=== PATIENT | female | born 1980 ===

== ENCOUNTER 2018-03-15 06:33 | Inpatient (IN) | payer OTHER ==
[~2018-03-15] VITALS: Ht 167.6 cm; Wt 52.2 kg
[2018-03-15] VITALS (15 sets, daily range): BP systolic 94–116; BP diastolic 53–78
[~2018-03-15 06:33] MED LIST: NKM
[2018-03-15] MEDS ORDERED: ceFAZolin sod 2 GM in D5W 110 ML IVPB ONE (07:00)
--- NOTE | 2018-03-15 07:22 | Pre-Procedure Note/Attestation ---
Pre-Procedure Note/Attestation Complete Prior to Procedure Planned Procedure: not applicable Procedure Narrative: anterior Cervical discectomy and fusion of C34 and Artificial disc replacement of C45 Indications for Procedure Pre-Operative Diagnosis: Herniation of C34 and 45 Attestation I attest that I discussed the nature of the procedure; its benefits; risks and complications; and alternatives (and the risks and benefits of such alternatives ), prior to the procedure, with the patient (or the patient's legal business center representative). I attest that, if there was a reasonable possibility of needing a blood transfusion, the patient (or the patient's legal business center representative) was given the [facility] standardized written summary, pursuant to the [place] Blood Safety Act ([place] Health and Safety Code # 1645, as amended). I attest that I re-evaluated the patient just prior to the surgery and that there has been no change in the patient's H&P, except as documented below: Ryne Jonas MD Mar 15, 2018 07:22
--- NOTE | 2018-03-15 07:23 | Brief Operative Note ---
Immediate Post Operative Note Operative Note Chief Complaint: neck pain and radiculopathy Pre-op Diagnosis: Herniation of C34 and 45 Procedure: anterior Cervical discectomy and fusion of C34 and Artificial disc replacement of C45 Post-op Diagnosis: same as pre-op Findings: consistent w/pre-op dx studies Surgeon: Pritesh Screen Door Maker: Mike Anesthesiologist: Anesthesia: general Specimen: none Complications: none Condition: stable Fluids: ivf Estimated Blood Loss: minimal Implant(s) used?: Yes - Prodisc C sz 5, nuvasive C Ryne Connell MD Mar 15, 2018 07:23
[2018-03-15] MEDS ORDERED: Metoclopramide 10mg/2ml Inj IVP PRN (07:30)
[2018-03-15] MEDS ORDERED: Vancomycin 1gm inj IVPB ONE (10:13)
[2018-03-15] MEDS ORDERED: Thrombin 5000 units TOPIC ONE (10:14)
[2018-03-15] MEDS ORDERED: Bacitracin 50000 Units Vial ONE (10:14)
[2018-03-15] MEDS ORDERED: Propofol 1,000mg/ 100ml btl IV ONE (10:30)
[2018-03-15] MEDS ORDERED: Neostigmine 1mg/ml 10ml Inj ONE (10:30)
[2018-03-15] MEDS ORDERED: NS Irrig 1000ml ONE (10:30)
[2018-03-15] MEDS ORDERED: Sterile Water Irrig 1000ml IRRIG ONE (10:30)
[2018-03-15] MEDS ORDERED: LR 1000ml ONE (10:30)
[2018-03-15] MEDS ORDERED: Ketamine 500mg Inj ONE (10:30)
[2018-03-15] MEDS ORDERED: Zemuron 50mg/5ml Inj IV ONE (10:30)
[2018-03-15] MEDS ORDERED: Succinylcholine 20mg/ml 10ml vial ONE (10:49)
[2018-03-15] MEDS ORDERED: Lidocaine 1% MPF 10mg/ml 5ml ONE (10:52)
[2018-03-15] MEDS ORDERED: Propofol 200mg/20ml IV ONE ×2 (10:52→13:25)
[2018-03-15] MEDS ORDERED: fentaNYL 100 mcg/2 mL IV ONE (11:25)
--- NOTE | 2018-03-15 12:14 | Anethesia Preoperative Eval ---
Anesthesia Pre-op PMH/ROS General Date of Evaluation: Mar 15, 2018 Time of Evaluation: 10:45 Anesthesiologist: ASA Score: ASA 2 Mallampati Score Class I : Soft palate, uvula, fauces, pillars visible Class II: Soft palate, uvula, fauces visible Class III: Soft palate, base of uvula visible Class IV: Only hard plate visible Mallampati Classification: Class I Surgeon: luba Diagnosis: cervical herniated nucleus pulposus Surgical Procedure: ACDF C3-4, Artificial disc replacement C4-5 Anesthesia History: none, PONV Family History: no anesthesia problems Allergies: Coded Allergies: No Known Allergies (Unverified , 03/14/18) Past Medical History Cardiovascular: Denies: HTN, CAD, HI, valve dz, arrhythmia, other Pulmonary: Denies: asthma, COPD, MOOK, other Gastrointestinal/Genitourinary: Denies: GERD, CRI, ESRD, other Neurologic/Psychiatric: Denies: dementia, CVA, depression/anxiety, TIA, other Endocrine: Denies: DM, hypothyroidism, steroids, other HEENT: Denies: cataract (L), cataract (R), glaucoma, [place] (L), [place] (R), other Hematology/Immune: Denies: anemia, DVT, bleeding disorder, other Musculoskeletal/Integumentary: Denies: OA, RA, DJD, DDD, edema, other PSxH Narrative: jaw surgery 2007, tonsillectomy Anesthesia Pre-op Phys. Exam Physician Exam Last Vital Signs Date Time Temp Pulse Resp B/P (MAP) Pulse Ox O2 Delivery O2 Flow Rate FiO2 03/15/18 08:16 98.9 69 20 94/53 (67) 99 98.9 03/15/18 07:55 Room Air Constitutional: other - neck pain Cardiovascular: RRR Respiratory: CTA Gastrointestinal: S/NT/ND Airway Exam Mallampati Score: Class I MO: full ROM: full Teeth: intact Dentures: no upper, no lower Anesthesia Pre-op A/P Labs Urine Test Test 03/15/18 06:45 Urine HCG, Qualitative Negative (NEGATIVE) Risk Assessment & Plan Assessment: asa 2 Plan: ETGA Status Change Before Surgery: No Pre-Antibiotics Drug: ancef 1gram Given Within 1 Hr of Incision: Yes Time Given: 11:30 Jenna Wade M.D. Mar 15, 2018 12:14
[2018-03-15] MEDS ORDERED: Hydromorphone 0.5mg/0.5ml inj IVP PRN (12:32)
[2018-03-15] MEDS ORDERED: fentaNYL 100 mcg/2 mL IV PRN (12:32)
[2018-03-15] MEDS ORDERED: Midazolam 2mg/2ml Inj IVP PRN (12:32)
--- NOTE | 2018-03-15 12:32 | Immediate Post-Op Evaluation ---
Immediate Post-Op Evalulation Immediate Post-Op Evalulation Procedure: ACDF C3-4, Disc replace C4-5 Date of Evaluation: Mar 15, 2018 Time of Evaluation: 14:20 IV Fluids: LR 1000ml Blood Products: 0 Estimated Blood Loss: 50ml Urinary Output: 0 Blood Pressure Systolic: 103 Blood Pressure Diastolic: 63 Pulse Rate: 89 Respiratory Rate: 22 O2 Sat by Pulse Oximetry: 100 Temperature (Fahrenheit): 98.1 Pain Score (1-10): 0 Nausea: No Vomiting: No Complications none Patient Status: patent, extubated, none Drug: ancef 1 gram Given Within 1 Hr of Incision: Yes - 11 Time Given: 11:30 Jenna Wade M.D. Mar 15, 2018 12:32
[2018-03-15] MEDS ORDERED: DiphenhydrAMINE 50mg/ml Inj IVP PRN (12:33)
[2018-03-15] MEDS ORDERED: LR 1000ml 1,000 ML IVLG SCH (12:33)
[2018-03-15] MEDS ORDERED: Acetaminophen (Non formulary) 100 ML IV ONE (13:30)
[2018-03-15] MEDS ORDERED: Glycopyrrolate 0.2mg/ml 1ml Vial ONE (13:51)
[2018-03-15] MEDS ORDERED: Milk of Magnesia 30ml Ud ORAL PRN (17:00)
[2018-03-15] MEDS ORDERED: Morphine Sulfate 2mg/ml Inj IV PRN (17:00)
[2018-03-15] MEDS ORDERED: Naloxone 0.4mg/ml Inj IVP PRN (17:00)
[2018-03-15] MEDS ORDERED: Morphine Sulfate 4mg/ml Inj IV PRN (17:00)
--- NOTE | 2018-03-15 17:24 | Diagnostic Imaging Report ---
Indication: Neck pain Technique: 3 Intraoperative fluoroscopic images submitted for archival the PACS. Operating surgeon: Ryne Jonas MD Total fluoroscopy time: 29.4 seconds . Total fluoroscopy dose: 5.5 mGy Findings: Fluoroscopic images from spinal surgery submitted for archival the PACS. There is an endotracheal tube. Initial image demonstrates a surgical device projecting over the disc space of C4-C5. Subsequent images demonstrate fusion at C3-C4 by means of screws as well as artificial disc at C4-C5. Impression: Fluoroscopic images from spinal surgery. Please see operative report.
[2018-03-15] MEDS: Docusate 100mg cap ORAL SCH (17:25)
[2018-03-15] MEDS: Dexamethasone 4mg/ml vial IVP SCH (17:25)
[2018-03-15] MEDS: NS w/KCl 20mEq 1,000 ML IV SCH (18:28)
[2018-03-15] MEDS: ceFAZolin sod 1 GM in D5W 55 ML IV SCH (18:28)
[2018-03-15] MEDS: Morphine Sulfate 4mg/ml Inj IV PRN (20:27)
--- NOTE | 2018-03-15 21:07 | 48 Hour Post Anesthesia Eval ---
Post Anesthesia Evaluation Procedure: ACDF C3-4, Disc replace C4-5 Date of Evaluation: Mar 15, 2018 Time of Evaluation: 21:06 Blood Pressure Systolic: 110 0: 70 Pulse Rate: 85 Respiratory Rate: 18 Temperature (Fahrenheit): 98.8 O2 Sat by Pulse Oximetry: 100 Airway: patent Nausea: No Vomiting: No Pain Intensity: 3 Hydration Status: adequate Cardiopulmonary Status: Stable Mental Status/LOC: other - Blurry R Eye Follow-up Care/Observations: Eye Care Post-Anesthesia Complications: 0 Follow-up care needed: N/A Martinez Gan MD Mar 15, 2018 21:07
[2018-03-16] VITALS: BP 93/55
[2018-03-16] MEDS: Dexamethasone 4mg/ml vial IVP SCH ×3 (00:59→12:32)
[2018-03-16] MEDS: NS w/KCl 20mEq 1,000 ML IV SCH ×3 (02:20→23:03)
[2018-03-16] MEDS: ceFAZolin sod 1 GM in D5W 55 ML IV SCH ×2 (02:20→10:42)
[2018-03-16] MEDS: Morphine Sulfate 4mg/ml Inj IV PRN (02:32)
[2018-03-16 04:00] VITALS: BP 99/55
[2018-03-16] MEDS: Docusate 100mg cap ORAL SCH ×2 (07:59→18:26)
[2018-03-16] MEDS: Norco 5mg/325mg tab ORAL PRN (07:59)
[2018-03-16] MEDS ORDERED: Isovue-300 100ml vial INJ PRN (11:15)
--- NOTE | 2018-03-16 11:18 | General Surgery Progress Note ---
General Surgery-Progress Note Subjective Day of Surgery: 03/15/18 Procedure Performed anterior Cervical discectomy and fusion of C34 and Artificial disc replacement of C45 Chief Complaint: postop neck pain and sore throat, new onset right eye blurred vision Objective Last 24 Hour Vital Signs Date Time Temp Pulse Resp B/P (MAP) Pulse Ox O2 Delivery O2 Flow Rate FiO2 03/16/18 08:28 Nasal Cannula 3.0 03/16/18 04:00 97.8 91 19 99/55 (70) 99 97.8 03/16/18 00:00 98.2 73 18 93/55 (68) 99 98.2 03/15/18 21:07 209.8 85 18 100 03/15/18 21:00 Nasal Cannula 3.0 03/15/18 20:00 98.2 82 18 95/59 (71) 99 98.2 03/15/18 18:25 98.8 03/15/18 17:00 98.8 85 18 110/78 (89) 100 98.8 03/15/18 16:30 Nasal Cannula 3.0 03/15/18 16:20 98.2 82 18 116/76 (89) 99 98.2 03/15/18 16:19 98.8 03/15/18 16:10 98.7 78 17 103/65 100 Nasal Cannula 3 98.7 03/15/18 16:00 98.8 74 15 101/64 100 Nasal Cannula 3 98.8 03/15/18 15:49 98.3 03/15/18 15:49 76 16 110/64 100 Nasal Cannula 3 03/15/18 15:30 77 16 105/64 100 Nasal Cannula 3 03/15/18 15:15 83 14 98/63 100 Simple Mask 6 03/15/18 15:00 93 21 102/64 100 Simple Mask 6 03/15/18 14:50 95 15 108/63 100 Simple Mask 6 03/15/18 14:40 87 11 100/57 100 Simple Mask 6 03/15/18 14:33 208.6 89 22 100 03/15/18 14:29 89 16 96/57 100 Simple Mask 6 03/15/18 14:24 98 13 99/61 100 Simple Mask 6 03/15/18 14:19 98.1 89 22 103/63 100 Simple Mask 6 98.1 I&O Intake and Output 03/15/18 03/16/18 19:00 07:00 Intake Total 1200 ml 1450 ml Output Total 50 ml Balance 1150 ml 1450 ml Intake Oral 240 ml IV Total 1200 ml 1210 ml Output Estimated Blood Loss 50 ml # Voids 3 Dressing: dry Wound: clean, intact Drains: none Extremities: no edema, no tenderness, no cyanosis Additional Comments Right eye pupil constriction, reactive to light but sluggish in c/w left, Able to see in all visual gu and able to move eye through all range of motion, there is a slight droop of right eyelid Assessment Post-op Diagnosis Blurred Vision S/p Cervical Hybrid ADR Plan Problems: (1) HNP (herniated nucleus pulposus), cervical Assessment & Plan: Plan to evaluate Right eye blurred vision with CT scan of the brain and an Opthamology consult Dr Tian was notified and we will follow Ryne Swenson MD Mar 16, 2018 11:18
[2018-03-16 12:00] VITALS: BP 95/58
--- NOTE | 2018-03-16 12:25 | Diagnostic Imaging Report ---
EXAM: CT Head without and With Intravenous Contrast CLINICAL HISTORY: BRAIN BLD TECHNIQUE: Axial computed tomography images of the head/brain without and with intravenous contrast. CTDI is 70.38 mGy and DLP is 2704 mGy-cm. One or more of the following dose reduction techniques were used: automated exposure control, adjustment of the mA and/or kV according to patient size, use of iterative reconstruction technique. COMPARISON: No relevant prior studies available. FINDINGS: Brain: Unremarkable. No hemorrhage. No edema. Normal enhancement. Ventricles: Unremarkable. No ventriculomegaly. Bones/joints: Unremarkable. No acute fracture. Soft tissues: Unremarkable. Sinuses: Unremarkable as visualized. No acute sinusitis. Mastoid air cells: Unremarkable as visualized. No mastoid effusion. IMPRESSION: Normal head/brain CT.
[2018-03-16] MEDS: HYDROcodone/Acetamin 7.5/325 tab ORAL PRN ×3 (12:34→21:36)
[2018-03-16 16:00] VITALS: BP 97/56
[2018-03-16] MEDS: Vitamin B12 1000mcg/ml Inj IM SCH (16:50)
--- NOTE | 2018-03-16 17:15 | Operative Note - Dictated ---
DATE OF OPERATION: 03/15/2018 SURGEON: Ryne Jonas M.D., Orthopaedic Spine Surgeon. MANAGER STYLE: Joaquin Mckeon M.D. PREOPERATIVE DIAGNOSES: 1. Intractable neck pain. 2. Radiculopathy. 3. Herniation, C3-C4 and C4-C5. 4. Neural foraminal stenosis, C3-C4 and C4-C5. 5. Stenosis. POSTOPERATIVE DIAGNOSES: 1. Intractable neck pain. 2. Radiculopathy. 3. Herniation, C3-C4 and C4-C5. 4. Neural foraminal stenosis, C3-C4 and C4-C5. 5. Stenosis. PROCEDURE PERFORMED: 1. Anterior cervical discectomy and artificial disc replacement of C4-C5 using a Synthes ProDisc-C size 5 height. 2. Anterior cervical discectomy and fusion of C3-C4 using NuVasive Interlock-C size 6 PEEK cage and three 13 mm screws with 1 mL of Osteocel allograft bone and local autograft 3. Use of intraoperative microscope. 4. Motor-evoked potential monitoring. 5. Somatosensory-evoked potential monitoring. 6. Supervision and interpretation of fluoroscopy. COMPLICATIONS: None. ANESTHESIA: General. ESTIMATED BLOOD LOSS: Less than 100 mL. INDICATIONS FOR SURGERY: This patient is a 37-year-old female who has history of diagnoses as listed above. As a result of this, the patient sustained intractable neck pain, radiculopathy, herniation at C3-C4 and C4-C5, neural foraminal stenosis at C3-C4 and C4-C5, and stenosis. We tried a course of conservative management, but despite this course, there was still a significant component of persistent, recalcitrant neck pain and arm pain. The MRI demonstrated significant neural foraminal compromise secondary to disc herniations at C3-C4 and C4-C5. We had a long discussion with Ashley regarding the risks and benefits of surgery. Our discussion included but was not limited to nonoperative management, chiropractic management, another epidural steroid injection as well as definitive management in the form of surgery. We recommended an artificial disc replacement of cervical C4-C5 and anterior cervical discectomy and fusion of cervical C3-C4 as final definitive management. We reviewed the risks and benefits of surgery with the patient. Our discussion included a comprehensive review of the clinical issues and the nature of the clinical decision. We reviewed the alternatives, including doing nothing. The patient elected to proceed accordingly with an artificial disc replacement of cervical C4-C5 and anterior cervical discectomy and fusion of cervical C3-C4. We had a long discussion regarding the risks, alternatives, and benefits of surgery. Our description of the risks included a discussion in person as well as a signed consent which detailed all pertinent risks from the procedure itself. Briefly, our discussion included but was not limited to infection, bleeding, pseudarthrosis, spinal cord injury, neurovascular injury, dural tear, CSF leak, neuropathy, paralysis, permanent weakness/drop foot/drop arm, paresthesias, blindness, palsy and weakness. The patient understood there may be a need for a revision surgery or additional procedures. Approach-related complications including dysphonia, dysphagia, blindness, permanent vocal cord and neural injury, hematoma, swallowing and breathing difficulty. Medical complications were reviewed including liver, kidney, shock, cardiopulmonary failure, anesthesia complications including , swelling, damage to the musculature, larynx/voice injury or loss, esophagus/throat, trachea, blood vessels and muscles/muscular sprain and lungs/pneumothorax during this surgical procedure; injury to deeper structures may be temporary or permanent. After this review of risks, the patient understood these and elected to proceed. A written and verbal consent was given. We discussed the pros and cons of all the alternatives. We discussed the uncertainties associated with the decision. Afterwards, I assessed the patient's understanding and explored their preferences. All questions were answered and no guarantees were given. Medical clearance was obtained prior to surgery. INTRAOPERATIVE FINDINGS: A discrete disc herniation which was found posterior to an obvious tear in the posterior longitudinal ligament at C4-C5. This was causing a considerable amount of neural foraminal stenosis with significant encroachment on the neural foramina and spinal cord which was being impinged as a result of this pressure. Upon inspection of the interspace at cervical C3-C4, I noticed a rent in the posterior longitudinal ligament or PLL. Upon inspection of this tear, once it was mobilized with Kerrison rongeurs, there was a disc fragment and herniation causing encroachment on the neural foramina and spinal cord posterior to the PLL. This was resected as well which caused some noted relief on the underlying neural elements. DESCRIPTION OF PROCEDURE: Under the benefit of general endotracheal anesthesia and with the assistance of the entire operative team, the patient was moved from the [facility] onto the operative table in the supine position. The head was secured and carefully positioned appropriately. Bilateral arms were secured with GelPads and foam and all bony prominences were padded. For the bilateral lower extremities, SCD and TAVON hose were placed for DVT prophylaxis. A surgical timeout was called which corroborated our planned procedure of an artificial disc replacement of cervical C4-C5 and anterior cervical discectomy and fusion of cervical C3-C4. Preoperative antibiotics were administered within 30 minutes of the incision for antibiotic prophylaxis. Using lateral fluoroscopic radiography, the operative levels were delineated. Next, the wound was prepped and draped with chlorhexidine and sterile drapes. An incision was based on lateral fluoroscopy and we centered our incision at the C3-C4 and C4-C5 interspace and next using a standard Trevizo-Lainez anterior-based approach, the incision was taken down through the skin and subcutaneous tissues until the vertebral bodies and their corresponding disc spaces were visualized. A needle was placed into the interspace to confirm placement of the operative interspace and we performed the remainder of procedure under microscopic visualization. Next, using a bipolar and Bovie cautery to ensure meticulous hemostasis, the longus colli was mobilized bilaterally and retractors were placed deep to the longus colli bilaterally to address retraction. Next, we turned our attention to the radical anterior discectomy. This was initially performed at C4-C5 first by using a #15 blade scalpel followed by narrow pituitaries and a Microsect 5-B curette was used to denude the endplate of all cartilaginous tissue. Next, using a Vigilix Juan R AM8 drill bit, the vertebral endplates were denuded of all residual cartilage in a lgns-yf-xmyn and ehdsh-gc-hyjdv fashion, and ultimately the posterior uncinate joints bilaterally and posterior osteophytic lips and margins were carefully denuded until clear visualization of the posterior longitudinal ligament was possible. An endplate preparation was performed in the exact same fashion using an intervertebral allopathic doctor, sequential distraction was obtained throughout the disc space. We saw a tear/rent in the PLL and this was carefully mobilized and dissected using a Microsect 1-B curette until we visualized a discrete disc herniation with compression of the spinal cord as well as neural foramina which was left-sided. This neural foraminal compression was carefully resected using a Kerrison-1 and Kerrison-2 rongeurs until complete decompression of the spinal cord was visualized and complete decompression of the neural foramina and nerve root therein as well as the axilla and lateral margin of the nerve root was visualized and subsequently completely decompressed. The family was notified at one-hour intervals throughout the procedure to provide for consistent updates. We next turned our attention towards trialing our implant within the disc space. We initially tried size 5 and this ProDisc Cervical spacer fit well in regard to depth and width. This implant was opened and prepared. Next under direct visualization, I confirmed excellent fit in respect to the anterior and posterior vertebral bodies, the uncinate joints, and in regard to toggle. Once satisfied with this placement on serial AP and lateral fluoroscopy, I turned my attention towards cutting our claudia. These were cut in the bones using a reciprocating drill and afterwards all free fragments of bone were irrigated. Next, FloSeal was placed into the interspace, then removed in its entirety, and the implant was inserted using fluoroscopic guidance. Next, the Synthes ProDisc-C size 5 ADR was then carefully advanced and secured into the intervertebral space under direct visualization and with supervision of AP and lateral fluoroscopic views. I next turned my attention towards the radical anterior discectomy. This was then performed at cervical C3-C4 first by using a #15 blade scalpel followed by narrow pituitaries and a Microsect 5-B curette was used to denude the endplate of all cartilaginous tissue. Next using a Memorop AM8 drill bit, the vertebral endplates were denuded of all cartilaginous tissue in a enbi-hq-jcjn and vcnjz-sj-cktja fashion, and ultimately the posterior uncinate joints bilaterally and posterior osteophytic lips and margins were carefully denuded until wide and thorough visualization of the posterior longitudinal ligament was possible. At this level, the endplate preparation was performed in the exact same fashion using an intervertebral allopathic doctor, sequential distraction was obtained throughout the disc space. We saw a tear/rent in the PLL and this was carefully mobilized and dissected using a Microsect 1-B curette until we visualized an obvious disc herniation with compression of the spinal cord as well as neural foramina which was left-sided. This neural foraminal compression was carefully resected using a Kerrison-1 and Kerrison-2 rongeurs until complete decompression of the spinal cord was visualized and complete decompression of the neural foramina and nerve root therein as well as the axilla and lateral margin of the nerve root was visualized and subsequently completely decompressed. We next turned our attention towards trialing our implant within the disc space. We initially tried size 5 and afterwards size 6 trial from the NuVasive Interlock system at each level, which appeared to be appropriate under AP and lateral fluoroscopy as well as in terms of its height, depth, width, and lack of toggle. The PEEK (polyetheretherketone) interbody cages were then both packed with allograft bone from Osteocel and local autograft bone matrix. Next, these were then carefully advanced and secured into their intervertebral spaces under direct visualization and with supervision of AP and lateral fluoroscopic views. We next turned our attention towards plating. Plating was performed at each level with the NuVasive Interlock-C plating system. A total of three screws, size 13 mm in length were inserted and confirmed under AP and lateral fluoroscopy and confirmed to be in excellent position. After a finger sweep, we confirmed removal of all sponges. The retractor was removed and we next turned our attention to meticulous hemostasis with FloSeal and bipolar cautery. After the sponge and needle count was again found to be correct with our second count, we next turned our attention to closure. The wound was again copiously irrigated with antibiotic-impregnated saline. Closure consisted of 4-0 clear nylon for the platysma, and 5-0 clear nylon for the superficial skin. Final skin closure and dressings consisted of Dermabond. Prior to final closure, a final radiograph was obtained which demonstrated the hardware was intact with excellent position throughout. The patient tolerated the procedure well. The patient was carefully extubated after the conclusion of surgery. We discussed the findings of the surgery with the family upon completion of the case. At this point, the patient was transferred to the spine floor for further observation. Ryne Jonas M.D. DR: Greta JOB#: [id number] CC:
[2018-03-16 20:00] VITALS: BP 96/55
[2018-03-16] MEDS: Tobradex Opth Susp 2.5ml RIGHT EYE SCH ×2 (20:03→23:03)
[2018-03-16] MEDS: Cosopt Opth Soln 10 mL Btl BOTH EYES SCH (20:03)
[2018-03-16] MEDS: Chloraseptic Spray 20mL Bottle ORAL PRN (20:47)
[2018-03-17] VITALS (7 sets, daily range): BP systolic 87–103; BP diastolic 50–61
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
[2018-03-17] MEDS: Tobradex Opth Susp 2.5ml RIGHT EYE SCH ×4 (05:40→23:07)
[2018-03-17] MEDS: HYDROcodone/Acetamin 7.5/325 tab ORAL PRN ×4 (06:32→21:56)
[2018-03-17] MEDS ORDERED: Dexamethasone 4mg/ml vial IVP SCH ×2 (09:00→10:00)
[2018-03-17] MEDS: Docusate 100mg cap ORAL SCH ×2 (09:22→18:49)
[2018-03-17] MEDS: NS w/KCl 20mEq 1,000 ML IV SCH ×3 (09:22→21:56)
[2018-03-17] MEDS: Chloraseptic Spray 20mL Bottle ORAL PRN (09:23)
[2018-03-17] MEDS: Cosopt Opth Soln 10 mL Btl BOTH EYES SCH ×2 (09:23→18:50)
[2018-03-17] MEDS: Vitamin B12 1000mcg/ml Inj IM SCH (09:23)
[2018-03-17] MEDS ORDERED: Gadavist 7.5mMol/7.5ml vial IV PRN (10:45)
--- NOTE | 2018-03-17 17:48 | Diagnostic Imaging Report ---
EXAM: MR Orbits Without Intravenous Contrast CLINICAL HISTORY: RECENT CERVICAL SPINE SX ON 03/15/18. AFTER SURGERY, RIGHT ORBITAL PAIN ON EYE MOVEMENT. DX: ORBITAL CELLULITIS, POSS. IRISITIS. PT UNABLE TO KEEP EYELID OPEN. LEFT EYE IS FINE. TECHNIQUE: Multiplanar magnetic resonance images of the orbits without intravenous contrast. COMPARISON: No relevant prior studies available. FINDINGS: Orbits: Unremarkable. No abnormal enhancement. No fluid collections or masses area. Optic nerves normal. Sinuses: Unremarkable. No air-fluid levels. Bones/joints: Unremarkable. Soft tissues: Unremarkable. IMPRESSION: Normal MRI of the orbits. EXAM: MR Head Without Intravenous Contrast CLINICAL HISTORY: RECENT CERVICAL SPINE SX ON 03/15/18. AFTER SURGERY, RIGHT ORBITAL PAIN ON EYE MOVEMENT. DX: ORBITAL CELLULITIS, POSS. IRISITIS. PT UNABLE TO KEEP EYELID OPEN. LEFT EYE IS FINE. TECHNIQUE: Magnetic resonance images of the head/brain without intravenous contrast in multiple planes. COMPARISON: CT head without and with contrast 03/16/18 FINDINGS: Brain: There is irregular contour of the of the right brain stem at the midbrain/elias junction. There is abnormal slight shifting of the right red nucleus with vague borders. There is focal area of a 7 mm T1 hypoattenuation in the right midbrain, axial image 9 series 10, without enhancement. 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 A low- grade WHO lesion is not excluded. No hemorrhage. No acute infarct. Ventricles: Unremarkable. No ventriculomegaly. Bones/joints: Unremarkable. Sinuses: Mild ethmoid sinus mucosal thickening. No acute sinusitis. Mastoid air cells: Unremarkable as visualized. No mastoid effusion. Orbits: Unremarkable as visualized. IMPRESSION: 1. There is irregular contour of the of the right brain stem at the midbrain/elias junction. There is abnormal slight shifting of the right red nucleus with vague borders. There is focal area of a 7 mm T1 hypoattenuation in the right midbrain, axial image 9 series 10, without enhancement. 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 A low- grade WHO lesion is not excluded. Consider follow-up MRI and neurological consultation. 2. Orbits unremarkable.
--- NOTE | 2018-03-17 18:30 | Progress Note ---
DATE: 03/17/2018 SUBJECTIVE: The patient slept well last night with minimal discomfort in the right eye. She still feels a pressure sensation in the eye and slight photophobia in the right eye. Her vision has not changed. There is no discharge. She is currently receiving TobraDex drops q.i.d. to the right eye as well as Cosopt drops bilaterally b.i.d. OPHTHALMIC EXAMINATION: Her visual acuity without correction was in the right eye 20/20 and in the left eye 20/20 (using a near card). The pupils were in the right eye approximately 3.5 mm and in the left eye approximately 4.5 mm without APD. Extraocular motility was intact bilaterally, but she did have discomfort on the right eye upon movement temporally and also superiorly. This made it very difficult to assess whether there was a motility disorder, but she had no diplopia in any field of gaze though she was the right eye upon movement. Squeezing her eyelids and occasionally closing upon movement superiorly or temporally. Again, there was no diplopia in any field of gaze. The lids revealed in the right eye decreased periocular soft tissue swelling and the left lids were within normal limits. The cornea was clear bilaterally and the anterior chamber deep and quiet bilaterally with no evidence hypopyon bilaterally. The iris and lens were within normal limits bilaterally. Intraocular pressures by Ajay-Pen tonometry at 1030 hours was in the right eye 17 and left eye 18. Confrontation of visual gu were again full bilaterally. ASSESSMENT/PLAN: 1. Possible iritis, right eye. 2. The patient has pain in the right eye upon movement. Rule out orbital cellulitis. The patient is to have orbital MRI today. 3. Ocular hypertension bilaterally. This is controlled with her current Cosopt eyedrops with much better and normal intraocular pressures bilaterally. I will continue to follow the patient while she is in-house. Ventura Saini M.D. DR: Octaviano JOB#: [id number] CC:
[2018-03-18] VITALS: BP 91/55
[2018-03-18 04:00] VITALS: BP 100/60
[2018-03-18] MEDS: Tobradex Opth Susp 2.5ml RIGHT EYE SCH (06:05)
[2018-03-18] MEDS: HYDROcodone/Acetamin 7.5/325 tab ORAL PRN ×2 (06:17→06:26)
[2018-03-18 08:00] VITALS: BP 100/66
[2018-03-18] MEDS: Cosopt Opth Soln 10 mL Btl BOTH EYES SCH (08:41)
[2018-03-18] MEDS: Docusate 100mg cap ORAL SCH (08:42)
[2018-03-18] MEDS: Vitamin B12 1000mcg/ml Inj IM SCH (08:42)
[2018-03-18] MEDS ORDERED: Dexamethasone 20mg/5ml IVP SCH (09:00)
[2018-03-18] MEDS: Norco 5mg/325mg tab ORAL PRN (09:24)
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
--- NOTE | 2018-03-18 12:00 | Progress Note ---
DATE: 03/16/2018 SURGEON: Ryne Jonas M.D., Orthopaedic Spine Surgeon. SUBJECTIVE: The patient notes complete resolution of radicular pain. The patient still notes postoperative neck pain and also notes blurry vision in the right eye, posterior right-sided skull-based pain, and blurry vision. OBJECTIVE: GENERAL: On physical examination, the incision is clean, dry, intact, and nonswollen. NEUROLOGIC: Motor intact throughout the bilateral upper extremities throughout the biceps, triceps, deltoid, finger extensors, wrist extensors, wrist flexors throughout sensation. Sensation intact throughout the space, C4, C5, C6, C7, C8, L2, L3, L4, L5, and S1. Right-sided pupil contracted. Left-sided pupil dilated. Both pupils are responsive with exam, however, right is slightly sluggish on exam with light. Sensation intact through bilateral upper and lower extremities and throughout the facial nerve, throughout the upper right and left sides of the face. There is no evidence of any dysarthria. IMPRESSION AND PLAN: Status post C3-C4 fusion and artificial disk replacement at C4-C5. This is a 37-year-old female who tolerated the procedure well with no issues with liver and now wakes with none of the preexisting radiculopathy which she had beforehand. She now presents with some blurry vision and erythema of the sclera. 1. Comfortable in regard to the neck. 2. Difficulty with blurry vision and trouble seeing clearly. I have recommended a full workup for this. I have consulted Dr. Lopez from Ophthalmology who will be evaluating her today. I have also ordered a CAT scan of the brain to rule out stroke as a result of the difference she notes in the vision and also secondary to abnormality in the pupil that I think is side effect. We will follow her accordingly. I have also tried to notify Dr. Wade in regard to this, however, I have been unable to reach her. As such, I am going to write for the Ophthalmology consultation. Ryne Jonas M.D. DRBryan Hernandes JOB#: [id number] CC:
--- NOTE | 2018-03-18 12:15 | Progress Note ---
DATE: 03/18/2018 SUBJECTIVE: The patient states the right eye feels much better today without pain. Her photophobia is markedly decreased and she is opening the eye more. There is no diplopia or discharge. OBJECTIVE: Upon exam, her visual acuity without correction using a near card was OD 20/20 and OS 20/20. It was approximately in the right eye 3.5 to 3 and then in the left eye 4.5 to 4 without APD. The intraocular pressure was approximately 18 bilaterally. The extraocular motility was easier to see today and she in the upgaze on the right eye. Although she did not state she had diplopia, she stated her vision was slightly blurred on upgaze. There appeared to be a third nerve palsy on upgaze in the right eye. The lids revealed marked decreased soft tissue swelling periocularly and the conjunctiva and sclera was within normal limits bilaterally and the cornea clear bilaterally. The anterior chamber was deep and quiet bilaterally. The iris and lens within normal limits bilaterally. ASSESSMENT/PLAN: Third nerve palsy, right eye. A CT scan of the brain was within normal limits, but an MRI of the orbits was within normal limits and of the brain revealed right brainstem, midbrain elias junction irregular contour. There was also focal area of hypoattenuation in the right midbrain without enhancement that is most probably developmental anomaly. Although a low-grade lesion is not excluded and the radiologist recommended a followup MRI and a Neurology consult. No neuro-specialty plant supervisor are in staff at [facility] nor was there a neurologist available. She is to be discharged and follow up this week. Ventura Saini M.D. DR: FLAVIO JOB#: [id number] CC:
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
--- NOTE | 2018-03-19 09:45 | Progress Note ---
DATE: 03/18/2018 SUBJECTIVE: The patient notes improving neck pain, incisional pain only. Swelling of the neck residual. Resolution of radiculopathy in the left arm. Presents with persistent right eye blurred vision and difficulty raising the eyelid on the right with some light sensitivity. OBJECTIVE: NEUROLOGIC: Sensation intact throughout the first dorsal web space, C1 through C5. Motor intact throughout the bilateral biceps, triceps, deltoids, finger extensors, wrist extensors rated 5/5. Sensation intact throughout the bilateral upper and lower extremities throughout the C5, C6, C7, L4, L5, S1 distribution. Reflexes graded 2/2 in the biceps, triceps, brachioradialis, patellar tendons, and Achilles tendon. HEENT: Right eye demonstrates contracted pupil which is responsive to light although somewhat sluggish in comparison to the left. The sclera no longer has the area of erythema circumferentially. She does demonstrate normal range of motion throughout the eye and normal gaze in all directions superiorly and inferiorly throughout abduction and adduction of the eye. IMPRESSION AND PLAN: A 37-year-old female who is status post artificial disk replacement of C4-C5 and anterior cervical discectomy and fusion of C3-C4, who presents with right eye blurred vision. I spoke with Dr. Saini over the weekend in regard to the patient's vision. 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 Dr. Saini's initial assessment is this is secondary to a cranial nerve III palsy. I have consulted with Neurology and Dr. Gill had been planned to see her and evaluate her today. Dr. Sandoval is a neuro-greige goods marker who has made an appointment to have her seen at the [place] office at 3 p.m. on an urgent basis in order to provide us some insight. In the interim, she will be discharged with the steroids and the vitamin analog which she has been receiving while here in the hospital. Ryne Jonas M.D. DR: Greta JOB#: [id number] CC: JENNY
--- NOTE | 2018-03-19 12:30 | Discharge Summary ---
Discharge Summary Hospital Course Date of Admission Mar 15, 2018 at 06:33 Date of Discharge Mar 18, 2018 at 11:50 Admitting Diagnosis Intractable neck pain.Radiculopathy. Reason for Hospitalization: elective surgery HPI Ashley Kendall is a 37 year old female who was admitted on Mar 15, 2018 at 06:33 for Intractable neck pain. Radiculopathy. Patient was admitted for elective surgery. Consultations dr Saini- department assistant dr Gill neurologist Procedures s/p by Dr Jonas 1. Anterior cervical discectomy and artificial disc replacement of C4-C5 using a Synthes ProDisc-C size 5 height. 2. Anterior cervical discectomy and fusion of C3-C4 using NuVasive Interlock-C size 6 PEEK cage and three 13 mm screws with 1 mL of Osteocel allograft bone and local autograft 3. Use of intraoperative microscope. 4. Motor-evoked potential monitoring. 5. Somatosensory-evoked potential monitoring. 6. Supervision and interpretation of fluoroscopy. Hospital Course s/p surgery dressing C/D/I motor/sensory BUE intact pain management, pain controlled tolerated soft diet, throat lozenges prn ambulated voided freely c/o blurred vision R eye CT head no acute intracranial pathology MRI head, orbits, neck - There is irregular contour of the of the right brain stem at the midbrain/elias junction. There is abnormal slight shifting of the right red nucleus with vague borders. There is focal area of a 7 mm T1 hypoattenuation in the right midbrain, axial image 9 series 10, without enhancement. 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 A low- grade WHO lesion is not excluded. Consider follow-up MRI and neurological consultation. Orbits unremarkable. ophthalmology consult was requested -opth diagnosed with possible iritis, right eye. -the patient had pain in the right eye upon movement. -orbital MRI ordered to r/o orbital cellulitis -by department assistant noted ocular hypertension bilaterally , controlled with her current Cosopt eyedrops with much better and normal intraocular pressures bilaterally. - after review of CT and MRI department assistant concluded that pt had third nerve palsy, right eye. 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 -The patient was reassured that the right-sided eye abnormality should improve with the passage of time and decrease in neck swelling. 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 Radiculopathy. Neural foraminal stenosis, C3-C4 and C4-C5. 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 0 ., 0 Refills (This prescription has been renewed) Discharge Condition Upon Discharge: stable Discharge Disposition Patient was discharged to Home (01) Discharge Instructions Discharge Instructions Special Instructions I have been assigned to complete a D/C Summary on this account. I was not involved in the patient management Ranjana Rios NP Mar 19, 2018 12:30
--- NOTE | 2018-03-20 01:30 | Discharge Summary ---
DATE OF ADMISSION: 03/15/2018 DATE OF DISCHARGE: 03/18/2018 NOTE: "POOR AUDIO QUALITY" PROCEDURE PERFORMED DURING ADMISSION: C3-C4 and C4-C5 . REASON FOR ADMISSION: Herniated nucleus pulposus, C3-C4 and C4-C5. HOSPITAL COURSE/TREATMENT RENDERED: The patient's inpatient admission was complicated by a course of blurry vision while in-house needing to rule out a stroke in her brain. She also had consultation with Ophthalmology and Neurology. The sales performance analyst felt that this blurred vision may be secondary to third nerve palsy. 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 She has been made an appointment with Dr. 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 Her pupils on discharge were improving. Her light sensitivity was improving and we will follow with her closely accordingly. DISCHARGE PHYSICAL EXAM: 1. The patient was ambulating with and without the assistance of physical therapy. 2. Prior to discharge home, incision was clean and dry with minimal swelling. 3. Follows commands. 4. Alert and oriented. 5. Lopez discontinued, voiding. 6. Incentive spirometer at bedside. 7. IVF hep-locked. MOTOR: Demonstrates expected postoperative bulk and tone. Moves biceps, triceps, and deltoid musculature on command. Moves hip flexors, quadriceps, tibialis anterior, EHL, gastrocsoleus musculature on command as well. TREATMENT RENDERED: 1. Daily nursing care. 2. Physical therapy. 3. Occupational therapy. 4. Intravenous medications. 5. Oral medications. 6. Daily postoperative examinations by Spine Surgery team. CONDITION OF PATIENT ON DISCHARGE: The condition on discharge is stable for discharge to home. DISCHARGE INSTRUCTIONS: Our specific instructions relating to physical activity, medications, diet, and followup care are detailed in our standard operative folder and were given to this patient prior to surgery. We will however summarize these briefly as stated below. Regarding physical activity, we would like the patient to limit their flexion, extension, and rotation. We also require a limitation on their bending, lifting, and twisting. All medication has been called in prior to surgery to their pharmacy of choice. They can resume their regular diet once tolerated. We would like them to shower and limit soaking the wound in a tub/Jacuzzi/the ocean for a period of one month or until the incision is completely healed. We will have them follow up in our office in three weeks' time for their regularly scheduled appointment. They understand to call our office tomorrow to schedule the time for their three-week followup appointment. The patient will notify us should they experience any increase in the severity of pain, redness, swelling, or drainage from their incision. Ryne Jonas M.D. DR: LB JOB#: [id number] CC:
== END 2018-03-18 11:50 | disposition home or self-care (01) | DRG 473 ==
LOC: SDSOVERFLO 06:33 → 3E 16:33
DX: M50.11 Cervical disc disorder with radiculopathy, high cervical region (principal); M48.02 Spinal stenosis, cervical region; V89.2XXS Person injured in unspecified motor-vehicle accident, traffic, sequela; F41.9 Anxiety disorder, unspecified; G90.2 Horner's syndrome; R90.89 Other abnormal findings on diagnostic imaging of central nervous system
CPT/HCPCS: 36415; 70460; 70542; 72040; 76001; 81025; 86850; 86900; 86901; 87081; 94003; 94150; A9585; J2710